=== PATIENT | male | born 1995 | race Caucasian/White ===

== ENCOUNTER 2021-12-17 13:31 | Emergency (ER) | payer OTHER ==
[~2021-12-17] VITALS: Ht 190.5 cm; Wt 109.1 kg
[2021-12-17 13:45] VITALS: TEMP 98.2
[2021-12-17 14:13] LABS: BASO % 0.4 % (0.0-2.0); EOS # 0.3 K/mm3 (0.0-0.7); EOS % 7.4 % (0.0-4.0); GRAN # 2.9 K/mm3 (1.4-6.5); GRAN % 63.1 % (42.2-75.2); HEMATOCRIT 44.2 % (42.0-52.0); MEAN CELL VOLUME 93 fl (80.0-100.0); MEAN CORPUSCULAR HEMOGLOBIN 31 pg (27-31); MEAN CORPUSCULAR HGB CONC 34 g/dl (33.0-37.0); MEAN PLATELET VOLUME 10.2 fl (7.4-10.4); MONO # 0.4 K/mm3 (0.1-0.6); MONO % 8.1 % (1.7-9.3); PLATELET COUNT 255 K/mm3 (130-400); RED BLOOD COUNT 4.78 M/mm3 (4.20-5.60); REDCELL DISTRIBUTION WIDTH-CV 13.2 % (11.5-14.5)
[2021-12-17 14:23] LABS: COLLECTION METHOD CLEAN CATCH
[2021-12-17 14:28] LABS: MUCOUS Present (NOT PRESENT); PH 7 (5-8); SQUAMOUS EPITHELIAL 0-2 /hpf (0-10); URINE APPEARANCE Clear (CLEAR/HAZY); URINE BACTERIA None Seen /hpf (NONE SEEN); URINE BILIRUBIN Negative (NEGATIVE); URINE BLOOD Negative (NEGATIVE); URINE COLOR Yellow (YELLOW); URINE GLUCOSE Negative (NEGATIVE); URINE KETONE Negative (NEGATIVE); URINE LEUKOCYTE ESTERASE Negative (NEGATIVE); URINE NITRATE Negative (NEGATIVE); URINE PROTEIN(semi-quant) Negative (NEGATIVE); URINE RBC None Seen /hpf (0-2); URINE UROBILINOGEN Negative (NEGATIVE)
[2021-12-17 14:33] LABS: ALBUMIN 4.1 gm/dL (3.5-5.0); BILIRUBIN,TOTAL 0.3 mg/dL (0.2-1.2); CREATININE, serum 1.27 mg/dL (0.72-1.25); POTASSIUM 3.7 mmol/L (3.5-4.5); TOTAL PROTEIN 7.2 gm/dL (6.2-8.1)
[2021-12-17 14:44] LABS: C-REACTIVE PROTEIN 0.07 mg/dL (0.00-0.50)
[2021-12-17 16:52] VITALS: BP 115/73; PULSE 57
== END 2021-12-17 16:49 | disposition home or self-care (01) ==
LOC: COL.ER 13:31
PROVIDERS: Nurse Practitioner
DX: R10.31 Right lower quadrant pain (principal); J32.9 Chronic sinusitis, unspecified; Z79.2 Long term (current) use of antibiotics; Z20.822 Contact with and (suspected) exposure to COVID-19
CPT/HCPCS: J2270; J2405; J7030; Q9967

== ENCOUNTER 2021-12-22 01:33 | Emergency (ER) | payer OTHER ==
[~2021-12-22] VITALS: Ht 190.5 cm; Wt 113.6 kg
[2021-12-22 01:36] VITALS: BP 135/70; TEMP 98.8
[2021-12-22] MEDS ORDERED: PREDNISONE10 MG PO (01:53)
[2021-12-22] MEDS ORDERED: ATARAX50 MG PO (01:53)
[2021-12-22 02:16] VITALS: PULSE 68
== END 2021-12-22 02:16 | disposition home or self-care (01) ==
LOC: COL.ER 01:33
DX: L50.0 Allergic urticaria (principal); F17.290 Nicotine dependence, other tobacco product, uncomplicated
CPT/HCPCS: J1100; J1200

== ENCOUNTER 2022-04-15 00:10 | Emergency (ER) | payer OTHER ==
[~2022-04-15] VITALS: Ht 190.5 cm; Wt 113.6 kg
[~2022-04-15 00:10] MED LIST: AMOXICILLIN 8751 TAB PO; ATARAX50 MG PO; PREDNISONE10 MG PO
[2022-04-15 00:12] VITALS: TEMP 98.5
[2022-04-15 00:53] VITALS: BP 122/84; PULSE 80
== END 2022-04-15 00:53 | disposition home or self-care (01) ==
LOC: COL.ER 00:10
DX: R07.89 Other chest pain (principal); J32.1 Chronic frontal sinusitis; Z98.890 Other specified postprocedural states
CPT/HCPCS: J1885

== ENCOUNTER 2022-09-18 16:01 | Emergency (ER) | payer OTHER ==
[~2022-09-18] VITALS: Ht 190.5 cm; Wt 115.9 kg
[~2022-09-18 16:01] MED LIST changes: +MOBIC15 MG PO; +NAPROXEN 3375 MG/TAB PO
[2022-09-18 16:30] VITALS: TEMP 98.1
[2022-09-18 19:25] VITALS: BP 117/74; PULSE 68
== END 2022-09-18 19:27 | disposition home or self-care (01) ==
LOC: COL.ER 16:01
DX: R51.9 Headache, unspecified (principal); J32.0 Chronic maxillary sinusitis; Z86.69 Personal history of other diseases of the nervous system and sense organs; Z86.16 Personal history of COVID-19
CPT/HCPCS: J0780; J1885; J7030

== ENCOUNTER 2022-10-14 21:26 | Emergency (ER) | payer OTHER ==
[~2022-10-14] VITALS: Ht 190.5 cm; Wt 115.9 kg
[~2022-10-14 21:26] MED LIST changes: +ZOFRAN ODT4 MG PO
[2022-10-14 21:32] VITALS: TEMP 97.8
[2022-10-14 22:25] LABS: BASO % 0.4 % (0.0-2.0); EOS # 0.4 K/mm3 (0.0-0.7); EOS % 6.7 % (0.0-4.0); GRAN # 2.9 K/mm3 (1.4-6.5); GRAN % 53.1 % (42.2-75.2); HEMATOCRIT 45.6 % (42.0-52.0); HEMOGLOBIN 15.4 g/dl (13.5-18.0); LYMPH # 1.7 K/mm3 (1.2-3.4); MEAN CELL VOLUME 92 fl (80.0-100.0); MEAN CORPUSCULAR HEMOGLOBIN 31 pg (27-31); MEAN CORPUSCULAR HGB CONC 34 g/dl (33.0-37.0); MEAN PLATELET VOLUME 10.4 fl (7.4-10.4); MONO # 0.5 K/mm3 (0.1-0.6); MONO % 8.4 % (1.7-9.3); PLATELET COUNT 218 K/mm3 (130-400); RED BLOOD COUNT 4.95 M/mm3 (4.20-5.60); REDCELL DISTRIBUTION WIDTH-CV 12.4 % (11.5-14.5)
[2022-10-14 22:46] LABS: ALANINE AMINOTRANSFERASE 41 U/L (0-55); ALBUMIN 4.2 gm/dL (3.5-5.0); ALKALINE PHOSPHATASE 45 U/L (40-150); ANION GAP 10 mmol/L (7-16); AST,SGOT 33 U/L (5-34); BILIRUBIN,TOTAL 0.2 mg/dL (0.2-1.2); BLOOD UREA NITROGEN 15 mg/dL (9-21); C-REACTIVE PROTEIN 0.03 mg/dL (0.00-0.50); CALCIUM 9.4 mg/dL (8.4-10.2); CARBON DIOXIDE 24 mmol/L (22-29); CHLORIDE 107 mmol/L (98-107); CREATININE, serum 1.16 mg/dL (0.72-1.25); GLUCOSE 96 mg/dL (70-99); POTASSIUM 4.1 mmol/L (3.5-4.5); SODIUM 141 mmol/L (136-145); TOTAL PROTEIN 7.3 gm/dL (6.2-8.1)
[2022-10-14 22:52] LABS: TROPONIN-I < 0.010 ng/mL (0.00-0.033)
[2022-10-14 23:51] VITALS: BP 137/86; PULSE 80
== END 2022-10-14 23:51 | disposition home or self-care (01) ==
LOC: COL.ER 21:26
PROVIDERS: Emergency Medicine
DX: R07.89 Other chest pain (principal); R51.9 Headache, unspecified; R21 Rash and other nonspecific skin eruption; U09.9 Post COVID-19 condition, unspecified
CPT/HCPCS: C9113; J1100